=== PATIENT | male | born 1935 | race African-American/Black ===

== ENCOUNTER → 2016-07-24 | Day surgery (SDC) | payer MEDICARE, BC ==
[~2016-07-24] VITALS: Ht 175.3 cm; Wt 83.9 kg
[~2016-07-24] MED LIST: ACETAMINOPHEN 325MG TABLET PO PRN; ASPI325T2 PO; ATEN-42 PO; CLOP75TA2 PO; DILT180C3 PO; FENTANYL CITRATE/PF 50MCG/ML 2ML VIAL ONE; HEPARIN SODIUM 1,000 UNIT/1ML VIAL IV ONE; INDO75CA PO; IODIXANOL 320MG/ML 100 ML BOTTLE IV ONE; ISOS60TA PO; LIDOCAINE HCL 1% 20ML VIAL (Pyxis) INJ ONE; METH4TAB3 PO; MIDAZOLAM HCL 2 MG/2 ML VIAL ONE; NITR0.4T3 SL; PREG50CA PO; RANO500T3 PO; SIMV40TA5 PO
== END | disposition home or self-care (01) ==
LOC: CCL 10:32
PROVIDERS: ATTEND Specialist
DX: I25.110 Atherosclerotic heart disease of native coronary artery with unstable angina pectoris (principal); Z95.1 Presence of aortocoronary bypass graft; Z95.5 Presence of coronary angioplasty implant and graft; I11.9 Hypertensive heart disease without heart failure; E78.5 Hyperlipidemia, unspecified; Z87.891 Personal history of nicotine dependence
CPT/HCPCS: 93459; C1760; C1769; C1887; C1893; J1644; J2250; J3010; J3490; Q9967

== ENCOUNTER 2017-07-14 17:57 | Inpatient (IN) | payer MEDICARE, BC ==
[~2017-07-14] VITALS: Ht 175.3 cm; Wt 83.0 kg
[~2017-07-14 17:57] MED LIST changes: -ACETAMINOPHEN 325MG TABLET PO PRN; +ASPI-986 PO; -ASPI325T2 PO; +CLOP75TA16 PO; -CLOP75TA2 PO; -FENTANYL CITRATE/PF 50MCG/ML 2ML VIAL ONE; -HEPARIN SODIUM 1,000 UNIT/1ML VIAL IV ONE; -INDO75CA PO; +INDO75CA3 PO; -IODIXANOL 320MG/ML 100 ML BOTTLE IV ONE; -LIDOCAINE HCL 1% 20ML VIAL (Pyxis) INJ ONE; -MIDAZOLAM HCL 2 MG/2 ML VIAL ONE; -NITR0.4T3 SL; +NITR0.4T49 SL
[2017-07-14 19:10] LABS: HEMATOCRIT. 46.8 % (42.0-52.0); HEMOGLOBIN. 15.8 g/dL (14.0-18.0); MEAN CORPUSCULAR HEMOGLOBIN 32.9 pg (28.0-32.0); MEAN CORPUSCULAR VOLUME 97.7 fL (80.0-94.0); MEAN PLATELET VOLUME 9.6 fl (7.4-10.4); PLATELET 157 x1000/uL (130-400); RED BLOOD CELL COUNT 4.79 mill/uL (4.7-6.1); RED CELL DISTRIBUTION WIDTH 14.3 % (11.6-14.6)
[2017-07-14 19:12] LABS: CHLORIDE 102 mEq/L (98-107)
[2017-07-14 19:16] LABS: D-DIMER 0.58 mg/L FEU (<0.50); INR 1.1; PARTIAL THROMBOPLASTIN TIME 29.6 sec (23.4-31.0); PROTHROMBIN TIME 11.7 sec (9.4-11.6)
[2017-07-14 19:20] LABS: CREATINE KINASE 149 IU/L (39-308)
[2017-07-14 19:23] LABS: CREATINE KINASE MB FRACTION 1.7 ng/mL (0.5-3.6)
[2017-07-14 19:51] LABS: PLATELET ESTIMATE NORMAL
[2017-07-14] MEDS ORDERED: SODIUM BICARBONATE 8.4% 1 MEQ/ML 50ML SYR IV ONE (20:30)
[2017-07-14] MEDS ORDERED: FUROSEMIDE 40MG/4ML VIAL IVP ONE (20:30)
[2017-07-14] MEDS ORDERED: IPRATROPIUM BROMIDE (0.02%) 0.5MG/2.5ML NEB HHN STA (20:42)
[2017-07-14] MEDS ORDERED: METHYLPREDNISOLONE SOD SUCC 125 MG/2 ML VIAL IV STA (20:42)
[2017-07-14] MEDS ORDERED: ALBUTEROL (0.083%) 2.5MG/3ML NEB HHN STA (20:42)
[2017-07-14] MEDS ORDERED: MAGNESIUM 2 G PREMIX 50 ML IV ONE (20:45)
[2017-07-14 21:44] LABS: BG BASE EXCESS 1.6 mmol/L (-2.0-2.0); BG CARBOXYHEMOGLOBIN 0.6 % (0.5-1.5); BG DEOXYHEMOGLOBIN 2.6 % (0.0-5.0); BG FRACTION INSPIRED OXYGEN 28; BG HCO3 ACT 25.4 mmol/L (22.0-26.0); BG METHEMOGLOBIN 0.2 % (0.0-1.5); BG OXYGEN SATURATION 97.4 % (92.0-98.5); BG OXYHEMOGLOBIN 96.6 % (94.0-97.0); BG PCO2 37.4 mmHg (35.0-45.0); BG PH 7.449 (7.350-7.450); BG PO2 94.6 mmHg (75.0-100.0); BG SAMPLE SITE RIGHT RADIAL; BG TOTAL HEMOGLOBIN 16.2 g/dL (12.0-18.0); BG VENT MODE NASAL CANNULA
[2017-07-14] MEDS ORDERED: ASPIRIN 81MG TABLET PO ONE (23:15)
[2017-07-15] MEDS: IPRATROPIUM/ALBUTEROL 0.5-3(2.5)MG/3ML NEB HHN SCH (01:40)
[2017-07-15] MEDS ORDERED: CLOPIDOGREL 75MG TABLET PO SCH (09:00)
[2017-07-15] MEDS ORDERED: ENOXAPARIN 40MG/0.4ML SYR SUBCUT SCH ×2 (09:00→22:00)
[2017-07-15] MEDS ORDERED: NITROGLYCERIN 0.4MG TABLET SL SL PRN (09:00)
[2017-07-15] MEDS ORDERED: DILTIAZEM HCL 180MG CAPSULE CD 24HR PO SCH (09:00)
[2017-07-15] MEDS ORDERED: METHYLPREDNISOLONE SOD SUCC 40 MG/ML VIAL IV SCH (10:00)
[2017-07-15 14:33] LABS: CREATINE KINASE MB FRACTION 3.1 ng/mL (0.5-3.6)
[2017-07-15 20:00] VITALS: BP 142/81
[2017-07-15 21:00] VITALS: BP 142/81
[2017-07-15] MEDS: ATORVASTATIN CALCIUM 20MG TABLET PO SCH (21:30)
[2017-07-15] MEDS: METHYLPREDNISOLONE SOD SUCC 40 MG/ML VIAL IV SCH (21:31)
[2017-07-16] VITALS (12 sets, daily range): BP systolic 106–150; BP diastolic 49–77
[2017-07-16 00:23] LABS: CREATINE KINASE MB FRACTION 5.4 ng/mL (0.5-3.6)
[2017-07-16] MEDS: METHYLPREDNISOLONE SOD SUCC 40 MG/ML VIAL IV SCH ×2 (06:49→17:46)
[2017-07-16 07:03] LABS: HEMATOCRIT. 47.7 % (42.0-52.0); HEMOGLOBIN. 15.7 g/dL (14.0-18.0); MEAN CORPUSCULAR HEMOGLOBIN 32.3 pg (28.0-32.0); MEAN CORPUSCULAR VOLUME 98.5 fL (80.0-94.0); MEAN PLATELET VOLUME 9.8 fl (7.4-10.4); PLATELET 166 x1000/uL (130-400); RED BLOOD CELL COUNT 4.85 mill/uL (4.7-6.1); RED CELL DISTRIBUTION WIDTH 14.3 % (11.6-14.6)
[2017-07-16 07:44] LABS: CHLORIDE 102 mEq/L (98-107)
[2017-07-16 07:59] LABS: LDL CHOLESTEROL 95 mg/dL (5-100)
[2017-07-16 08:01] LABS: HDL CHOLESTEROL 60 mg/dL (40-59)
[2017-07-16] MEDS: DILTIAZEM HCL 180MG CAPSULE CD 24HR PO SCH (08:08)
[2017-07-16] MEDS: ISOSORBIDE MONONITRATE 60MG TABLET SR 24HR PO SCH (08:08)
[2017-07-16] MEDS: IPRATROPIUM/ALBUTEROL 0.5-3(2.5)MG/3ML NEB HHN SCH ×4 (09:21→21:28)
[2017-07-16] MEDS: AZITHROMYCIN 500 MG TABLET PO SCH (12:41)
[2017-07-16] MEDS ORDERED: NON FORMULARY PATIENT HOME MED EA OP SCH ×2 (21:00)
[2017-07-16] MEDS ORDERED: ENOXAPARIN 40MG/0.4ML SYR SUBCUT SCH (21:00)
[2017-07-16] MEDS: LATANOPROST 0.005% OPHTH DROPS 2.5ML EACHEYE SCH (21:02)
[2017-07-16] MEDS: ATORVASTATIN CALCIUM 20MG TABLET PO SCH (21:02)
[2017-07-16] MEDS: BRIMONIDINE 0.2% OPHTH DROPS 5ML EACHEYE SCH (21:02)
[2017-07-17] VITALS (12 sets, daily range): BP systolic 107–135; BP diastolic 52–70
[2017-07-17 04:58] LABS: PLATELET ESTIMATE NORMAL
[2017-07-17] MEDS: METHYLPREDNISOLONE SOD SUCC 40 MG/ML VIAL IV SCH ×2 (06:05→17:02)
[2017-07-17] MEDS: IPRATROPIUM/ALBUTEROL 0.5-3(2.5)MG/3ML NEB HHN SCH ×4 (08:38→21:50)
[2017-07-17 09:02] LABS: HEMATOCRIT. 44.3 % (42.0-52.0); HEMOGLOBIN. 14.5 g/dL (14.0-18.0); MEAN CORPUSCULAR HEMOGLOBIN 32.1 pg (28.0-32.0); MEAN CORPUSCULAR VOLUME 98.1 fL (80.0-94.0); MEAN PLATELET VOLUME 9.6 fl (7.4-10.4); PLATELET 174 x1000/uL (130-400); RED BLOOD CELL COUNT 4.52 mill/uL (4.7-6.1); RED CELL DISTRIBUTION WIDTH 14.4 % (11.6-14.6)
[2017-07-17 09:31] LABS: CHLORIDE 97 mEq/L (98-107)
[2017-07-17] MEDS: BRIMONIDINE 0.2% OPHTH DROPS 5ML EACHEYE SCH ×2 (09:46→17:01)
[2017-07-17] MEDS: ISOSORBIDE MONONITRATE 60MG TABLET SR 24HR PO SCH (09:46)
[2017-07-17] MEDS: AZITHROMYCIN 500 MG TABLET PO SCH (09:46)
[2017-07-17] MEDS: DILTIAZEM HCL 180MG CAPSULE CD 24HR PO SCH (09:47)
[2017-07-17] MEDS ORDERED: BENZONATATE 100MG CAPSULE PO PRN (14:15)
[2017-07-17] MEDS: LATANOPROST 0.005% OPHTH DROPS 2.5ML EACHEYE SCH (20:15)
[2017-07-17] MEDS: ATORVASTATIN CALCIUM 20MG TABLET PO SCH (20:15)
[2017-07-18] VITALS (12 sets, daily range): BP systolic 116–153; BP diastolic 56–83
[2017-07-18] MEDS: METHYLPREDNISOLONE SOD SUCC 40 MG/ML VIAL IV SCH ×2 (05:51→17:18)
[2017-07-18] MEDS: BRIMONIDINE 0.2% OPHTH DROPS 5ML EACHEYE SCH ×2 (08:02→17:17)
[2017-07-18] MEDS: ISOSORBIDE MONONITRATE 60MG TABLET SR 24HR PO SCH (08:02)
[2017-07-18] MEDS: DILTIAZEM HCL 180MG CAPSULE CD 24HR PO SCH (08:03)
[2017-07-18] MEDS: AZITHROMYCIN 500 MG TABLET PO SCH (08:03)
[2017-07-18] MEDS: IPRATROPIUM/ALBUTEROL 0.5-3(2.5)MG/3ML NEB HHN SCH ×4 (09:10→21:11)
[2017-07-18] MEDS ORDERED: GUAIFENESIN/CODEINE 200-20MG/10ML UDC PO PRN (13:00)
[2017-07-18] MEDS: FLUTICASONE/VILANTEROL 200-25 BLST.W.DEV ORI SCH (13:38)
[2017-07-18 15:02] LABS: PLATELET ESTIMATE NORMAL
[2017-07-18] MEDS: ATORVASTATIN CALCIUM 20MG TABLET PO SCH (21:10)
[2017-07-18] MEDS: LATANOPROST 0.005% OPHTH DROPS 2.5ML EACHEYE SCH (21:11)
[2017-07-19] VITALS (13 sets, daily range): BP systolic 128–145; BP diastolic 64–79
[2017-07-19] MEDS: METHYLPREDNISOLONE SOD SUCC 40 MG/ML VIAL IV SCH (06:09)
[2017-07-19 06:32] LABS: HEMATOCRIT. 43.5 % (42.0-52.0); HEMOGLOBIN. 14.3 g/dL (14.0-18.0); MEAN CORPUSCULAR VOLUME 97.5 fL (80.0-94.0); MEAN PLATELET VOLUME 9.5 fl (7.4-10.4); PLATELET 176 x1000/uL (130-400); RED BLOOD CELL COUNT 4.46 mill/uL (4.7-6.1); RED CELL DISTRIBUTION WIDTH 14.2 % (11.6-14.6)
[2017-07-19 07:10] LABS: CHLORIDE 100 mEq/L (98-107)
[2017-07-19] MEDS: FLUTICASONE/VILANTEROL 200-25 BLST.W.DEV ORI SCH (08:29)
[2017-07-19] MEDS: BRIMONIDINE 0.2% OPHTH DROPS 5ML EACHEYE SCH ×2 (08:29→17:13)
[2017-07-19] MEDS: DILTIAZEM HCL 180MG CAPSULE CD 24HR PO SCH (08:30)
[2017-07-19] MEDS: AZITHROMYCIN 500 MG TABLET PO SCH (08:30)
[2017-07-19] MEDS: ISOSORBIDE MONONITRATE 60MG TABLET SR 24HR PO SCH (08:31)
[2017-07-19] MEDS: IPRATROPIUM/ALBUTEROL 0.5-3(2.5)MG/3ML NEB HHN SCH ×4 (09:05→20:32)
[2017-07-19] MEDS: PREDNISONE 10MG TABLET PO SCH (17:13)
[2017-07-19] MEDS: LATANOPROST 0.005% OPHTH DROPS 2.5ML EACHEYE SCH (20:41)
[2017-07-19] MEDS: ATORVASTATIN CALCIUM 20MG TABLET PO SCH (20:41)
[2017-07-19 23:42] LABS: PLATELET ESTIMATE NORMAL
[2017-07-20] VITALS (8 sets, daily range): BP systolic 115–144; BP diastolic 69–78
[2017-07-20] MEDS: AZITHROMYCIN 500 MG TABLET PO SCH (08:19)
[2017-07-20] MEDS: PREDNISONE 10MG TABLET PO SCH (08:19)
[2017-07-20] MEDS: FLUTICASONE/VILANTEROL 200-25 BLST.W.DEV ORI SCH (08:19)
[2017-07-20] MEDS: DILTIAZEM HCL 180MG CAPSULE CD 24HR PO SCH (08:20)
[2017-07-20] MEDS: ISOSORBIDE MONONITRATE 60MG TABLET SR 24HR PO SCH (08:20)
[2017-07-20] MEDS: BRIMONIDINE 0.2% OPHTH DROPS 5ML EACHEYE SCH (08:27)
[2017-07-20] MEDS: IPRATROPIUM/ALBUTEROL 0.5-3(2.5)MG/3ML NEB HHN SCH ×2 (09:25→11:54)
[2017-07-20] MEDS ORDERED: PREDNISONE 20MG TABLET PO NR (12:00)
== END 2017-07-20 13:35 | disposition home or self-care (01) | DRG 291 ==
LOC: ER 18:58 → EDBEDREQ 20:52 → EDBEDREQSVC 20:52 → EDBEDREQTM 20:52 → EDBEDREQSVC 07-15 08:00 → 3WST 07-15 20:00
PROVIDERS: ADMIT Internal Medicine Critical Care Medicine; ATTEND Internal Medicine Critical Care Medicine
DX: I13.0 Hypertensive heart and chronic kidney disease with heart failure and stage 1 through stage 4 chronic kidney disease, or unspecified chronic kidney disease (principal); J96.91 Respiratory failure, unspecified with hypoxia; E87.2 Acidosis; J44.1 Chronic obstructive pulmonary disease with (acute) exacerbation; J98.11 Atelectasis; R04.2 Hemoptysis; I50.9 Heart failure, unspecified; I25.10 Atherosclerotic heart disease of native coronary artery without angina pectoris; I25.5 Ischemic cardiomyopathy; E78.5 Hyperlipidemia, unspecified; N18.9 Chronic kidney disease, unspecified; H40.9 Unspecified glaucoma; E78.00 Pure hypercholesterolemia, unspecified; G89.29 Other chronic pain; M54.5 Low back pain; Z95.1 Presence of aortocoronary bypass graft; Z79.899 Other long term (current) drug therapy; Z95.5 Presence of coronary angioplasty implant and graft; Z90.49 Acquired absence of other specified parts of digestive tract; Z79.02 Long term (current) use of antithrombotics/antiplatelets; Z88.2 Allergy status to sulfonamides; Z88.8 Allergy status to other drugs, medicaments and biological substances; Z80.9 Family history of malignant neoplasm, unspecified; Z82.49 Family history of ischemic heart disease and other diseases of the circulatory system; I25.2 Old myocardial infarction; Z87.891 Personal history of nicotine dependence
CPT/HCPCS: 36415; 36600; 71045; 71250; 78582; 80048; 80053; 80061; 82375; 82550; 82553; 82805; 83605; 83690; 83880; 84484; 85025; 85379; 85610; 85730; 87040; 88108; 88312; 93005; 93306; 93970; 94640; 94644; 96361; 96374; 96375; 99291; A9558; J1650; J1940; J2920; J2930; J3475; J3490; J7512; J7611; J7620

== ENCOUNTER 2022-03-05 16:09 | Inpatient (IN) | payer MEDICARE, BC ==
[~2022-03-05] VITALS: Ht 175.3 cm; Wt 81.8 kg
[~2022-03-05 16:09] MED LIST changes: -ASPI-986 PO; +BRIM.2 EACHEYE; +CLOP-31 PO; -CLOP75TA16 PO; -DILT180C3 PO; +DILT180C87 PO; -INDO75CA3 PO; +LATA2.5D14 EACHEYE; -METH4TAB3 PO; -PREG50CA PO; +SIMV-46 PO; -SIMV40TA5 PO
[2022-03-05 22:42] LABS: HEMATOCRIT. 43.9 % (42.0-52.0); HEMOGLOBIN. 14.6 g/dL (14.0-18.0); MEAN CORPUSCULAR HEMOGLOBIN 34.2 pg (28.0-32.0); MEAN CORPUSCULAR VOLUME 102.6 fL (80.0-94.0); MEAN PLATELET VOLUME 10.5 fl (7.4-10.4); PLATELET 159 x1000/uL (130-400); RED BLOOD CELL COUNT 4.28 mill/uL (4.7-6.1); RED CELL DISTRIBUTION WIDTH 14.5 % (11.6-14.6)
[2022-03-05 22:53] LABS: CHLORIDE 98 mEq/L (98-107)
[2022-03-05 22:57] LABS: PLATELET ESTIMATE NORMAL
[2022-03-06] MEDS ORDERED: IPRATROPIUM/ALBUTEROL 0.5-3(2.5)MG/3ML NEB HHN ONE ×2 (02:00→02:30)
[2022-03-06] MEDS ORDERED: DEXAMETHASONE 4MG TABLET PO ONE (02:00)
[2022-03-06] MEDS ORDERED: DEXAMETHASONE 2MG TABLET PO NR (03:00)
[2022-03-06 03:44] LABS: CLARITY URINE TURBID (CLEAR); COLOR URINE YELLOW (YELLOW); KETONES URINE TRACE (NEGATIVE); LEUKOCYTE ESTERASE URINE 3+ (NEGATIVE); NITRITE URINE POSITIVE (NEGATIVE); OCCULT BLOOD URINE 1+ (NEGATIVE); PH URINE 5.5 (4.5-8.0); PROTEIN URINE 2+ (NEGATIVE); SPECIFIC GRAVITY URINE 1.012 (1.005-1.030)
[2022-03-06] MEDS ORDERED: ALBU6.7H3 INH (11:13)
[2022-03-06] MEDS ORDERED: ASPI-1497 MT (11:13)
[2022-03-06 11:14] VITALS: BP 127/64
[2022-03-06] MEDS ORDERED: ACETAMINOPHEN 325MG TABLET PO PRN (11:45)
[2022-03-06] MEDS ORDERED: ONDANSETRON HCL 4MG/2ML INJ IV PRN (11:45)
[2022-03-06] MEDS ORDERED: CLONIDINE 0.1MG TABLET PO PRN (11:45)
[2022-03-06] MEDS: METHYLPREDNISOLONE SOD SUCC 40 MG/ML VIAL IV SCH ×2 (11:57→17:47)
[2022-03-06 12:00] VITALS: BP 159/71
[2022-03-06 12:27] VITALS: BP 127/64
[2022-03-06] MEDS: GUAIFENESIN 200MG/10ML SUGAR FREE UDC PO PRN (15:54)
[2022-03-06] MEDS: BRIMONIDINE 0.2% OPHTH DROPS 5ML BOTHEYE SCH ×2 (15:55→22:03)
[2022-03-06 16:00] VITALS: BP 142/72
[2022-03-06] MEDS: MULTIVITAMINS,THER W-MINERALS TABLET PO SCH (17:47)
[2022-03-06] MEDS: THIAMINE HCL 100MG TABLET PO SCH (17:47)
[2022-03-06 19:25] LABS: PHOSPHORUS 3.5 mg/dL (2.5-4.9)
[2022-03-06] MEDS: CEFTRIAXONE 1,000 MG in DEXTROSE 5% WATER 50 ML IV SCH (22:01)
[2022-03-07] VITALS: BP 132/56
[2022-03-07 04:00] VITALS: BP 132/63
[2022-03-07] MEDS: BRIMONIDINE 0.2% OPHTH DROPS 5ML BOTHEYE SCH ×3 (05:44→23:12)
[2022-03-07] MEDS: METHYLPREDNISOLONE SOD SUCC 40 MG/ML VIAL IV SCH ×3 (05:44→20:31)
[2022-03-07 08:00] VITALS: BP 129/52
[2022-03-07 08:17] LABS: HEMATOCRIT. 40.8 % (42.0-52.0); HEMOGLOBIN. 13.4 g/dL (14.0-18.0); MEAN CORPUSCULAR HEMOGLOBIN 33.7 pg (28.0-32.0); MEAN CORPUSCULAR VOLUME 102.8 fL (80.0-94.0); MEAN PLATELET VOLUME 10.1 fl (7.4-10.4); PLATELET 150 x1000/uL (130-400); RED BLOOD CELL COUNT 3.96 mill/uL (4.7-6.1); RED CELL DISTRIBUTION WIDTH 14.3 % (11.6-14.6)
[2022-03-07 09:00] LABS: CHLORIDE 101 mEq/L (98-107)
[2022-03-07] MEDS: THIAMINE HCL 100MG TABLET PO SCH (09:42)
[2022-03-07] MEDS: MULTIVITAMINS,THER W-MINERALS TABLET PO SCH (09:42)
[2022-03-07 11:53] LABS: BG BASE EXCESS 4.9 mmol/L (-2.0-2.0); BG CARBOXYHEMOGLOBIN 0.9 % (0.5-1.5); BG DEOXYHEMOGLOBIN 9.2 % (0.0-5.0); BG FRACTION INSPIRED OXYGEN 21; BG HCO3 ACT 31.1 mmol/L (22.0-26.0); BG METHEMOGLOBIN 0.3 % (0.0-1.5); BG OXYGEN SATURATION 90.7 % (92.0-98.5); BG OXYHEMOGLOBIN 89.6 % (94.0-97.0); BG PCO2 52.3 mmHg (35.0-45.0); BG PH 7.392 (7.350-7.450); BG PO2 59.6 mmHg (75.0-100.0); BG SAMPLE SITE RIGHT RADIAL; BG VENT MODE ROOM AIR
[2022-03-07 12:00] VITALS: BP 145/75
[2022-03-07 16:00] VITALS: BP 154/76
[2022-03-07] MEDS: CEFTRIAXONE 1,000 MG in DEXTROSE 5% WATER 50 ML IV SCH (18:08)
[2022-03-07 20:00] VITALS: BP 123/70
[2022-03-08] VITALS: BP 130/80
[2022-03-08] MEDS: ALBUTEROL 6.7GM HFA INHALER ORI SCH ×5 (00:30→22:02)
[2022-03-08] MEDS: GUAIFENESIN 200MG/10ML SUGAR FREE UDC PO PRN (00:31)
[2022-03-08] MEDS: ZOLPIDEM TARTRATE 5MG TABLET PO PRN ×2 (00:38→22:16)
[2022-03-08 04:00] VITALS: BP 130/67
[2022-03-08] MEDS: METHYLPREDNISOLONE SOD SUCC 40 MG/ML VIAL IV SCH ×3 (04:13→22:02)
[2022-03-08 04:22] LABS: PLATELET ESTIMATE NORMAL
[2022-03-08] MEDS: BRIMONIDINE 0.2% OPHTH DROPS 5ML BOTHEYE SCH ×3 (07:08→22:02)
[2022-03-08 07:30] LABS: HEMOGLOBIN. 13.3 g/dL (14.0-18.0); MEAN CORPUSCULAR HEMOGLOBIN 33.7 pg (28.0-32.0); MEAN PLATELET VOLUME 10.5 fl (7.4-10.4); PLATELET 168 x1000/uL (130-400); RED BLOOD CELL COUNT 3.94 mill/uL (4.7-6.1); RED CELL DISTRIBUTION WIDTH 14.6 % (11.6-14.6)
[2022-03-08 07:47] LABS: CHLORIDE 101 mEq/L (98-107)
[2022-03-08 08:08] VITALS: BP 143/69
[2022-03-08] MEDS: THIAMINE HCL 100MG TABLET PO SCH (09:12)
[2022-03-08] MEDS: MULTIVITAMINS,THER W-MINERALS TABLET PO SCH (09:12)
[2022-03-08 12:00] VITALS: BP 150/68
[2022-03-08] MEDS ORDERED: AZITHROMYCIN 500 MG TABLET PO NR (15:30)
[2022-03-08 16:00] VITALS: BP 145/71
[2022-03-08 20:00] VITALS: BP 144/68
[2022-03-08] MEDS: CEFTRIAXONE 1,000 MG in DEXTROSE 5% WATER 50 ML IV SCH (22:02)
[2022-03-08 22:17] LABS: PLATELET ESTIMATE NORMAL
[2022-03-09] VITALS (7 sets, daily range): BP systolic 134–180; BP diastolic 56–84
[2022-03-09] MEDS: METHYLPREDNISOLONE SOD SUCC 40 MG/ML VIAL IV SCH ×3 (03:45→21:41)
[2022-03-09] MEDS: BRIMONIDINE 0.2% OPHTH DROPS 5ML BOTHEYE SCH ×3 (06:44→21:43)
[2022-03-09] MEDS: ALBUTEROL 6.7GM HFA INHALER ORI SCH ×4 (06:45→21:43)
[2022-03-09 07:29] LABS: HEMOGLOBIN. 13.5 g/dL (14.0-18.0); MEAN CORPUSCULAR HEMOGLOBIN 33.8 pg (28.0-32.0); MEAN CORPUSCULAR VOLUME 102.7 fL (80.0-94.0); MEAN PLATELET VOLUME 10.3 fl (7.4-10.4); PLATELET 163 x1000/uL (130-400); RED BLOOD CELL COUNT 3.99 mill/uL (4.7-6.1); RED CELL DISTRIBUTION WIDTH 14.4 % (11.6-14.6)
[2022-03-09 09:35] LABS: CHLORIDE 99 mEq/L (98-107)
[2022-03-09] MEDS: MULTIVITAMINS,THER W-MINERALS TABLET PO SCH (09:52)
[2022-03-09] MEDS: THIAMINE HCL 100MG TABLET PO SCH (09:52)
[2022-03-09] MEDS: AZITHROMYCIN 250 MG TABLET PO SCH (09:52)
[2022-03-09] MEDS ORDERED: SODIUM POLYSTYRENE SULFONATE 15 G/60 ML BOT PO NR (13:15)
[2022-03-09 14:24] LABS: PLATELET ESTIMATE NORMAL
[2022-03-09] MEDS: GUAIFENESIN 200MG/10ML SUGAR FREE UDC PO PRN (16:30)
[2022-03-09] MEDS ORDERED: LORAZEPAM 2MG/ML CPJ IV PRN (18:00)
[2022-03-09] MEDS: CEFTRIAXONE 1,000 MG in DEXTROSE 5% WATER 50 ML IV SCH (18:02)
[2022-03-09] MEDS: ZOLPIDEM TARTRATE 5MG TABLET PO PRN (21:41)
[2022-03-10] VITALS: BP 97/70
[2022-03-10] MEDS ORDERED: METOPROLOL TARTRATE 5MG/5ML VIAL IV NR (01:45)
[2022-03-10 04:00] VITALS: BP 134/76
[2022-03-10] MEDS ORDERED: DILTIAZEM HCL 180MG CAPSULE CD 24HR PO SCH (04:00)
[2022-03-10] MEDS: ALBUTEROL 6.7GM HFA INHALER ORI SCH ×4 (05:33→23:14)
[2022-03-10] MEDS: METHYLPREDNISOLONE SOD SUCC 40 MG/ML VIAL IV SCH ×3 (05:33→23:08)
[2022-03-10] MEDS: BRIMONIDINE 0.2% OPHTH DROPS 5ML BOTHEYE SCH ×2 (05:33→14:15)
[2022-03-10] MEDS ORDERED: DILT180C66 PO (06:13)
[2022-03-10] MEDS ORDERED: NITROGLYCERIN 0.4MG TABLET SL SL PRN ×2 (07:15→07:30)
[2022-03-10] MEDS: ATENOLOL 25MG TABLET PO SCH ×2 (07:15→09:00)
[2022-03-10 08:00] VITALS: BP 143/79
[2022-03-10] MEDS: BRIMONIDINE 0.2% OPHTH DROPS 5ML EACHEYE SCH ×2 (09:49→17:00)
[2022-03-10] MEDS: DILTIAZEM HCL 180MG CAPSULE CD 24HR PO SCH (09:49)
[2022-03-10] MEDS: AZITHROMYCIN 250 MG TABLET PO SCH (09:50)
[2022-03-10] MEDS: THIAMINE HCL 100MG TABLET PO SCH (09:50)
[2022-03-10] MEDS: RANOLAZINE 500 MG TAB.SR.12H PO SCH ×2 (09:50→17:00)
[2022-03-10] MEDS: MULTIVITAMINS,THER W-MINERALS TABLET PO SCH (09:50)
[2022-03-10] MEDS: GUAIFENESIN 200MG/10ML SUGAR FREE UDC PO PRN (09:50)
[2022-03-10] MEDS: ISOSORBIDE MONONITRATE 30MG TABLET SR 24HR PO SCH (09:50)
[2022-03-10] MEDS: CLOPIDOGREL 75MG TABLET PO SCH (09:50)
[2022-03-10 12:00] VITALS: BP 129/69
[2022-03-10] MEDS: FUROSEMIDE 40MG TABLET PO SCH (14:15)
[2022-03-10 16:00] VITALS: BP 154/84
[2022-03-10] MEDS: CEFTRIAXONE 1,000 MG in DEXTROSE 5% WATER 50 ML IV SCH (18:08)
[2022-03-10 20:00] VITALS: BP 135/81
[2022-03-10] MEDS ORDERED: ATORVASTATIN CALCIUM 20MG TABLET PO SCH (21:00)
[2022-03-10] MEDS ORDERED: LATANOPROST 0.005% OPHTH DROPS 2.5ML EACHEYE SCH (21:00)
[2022-03-10] MEDS: ZOLPIDEM TARTRATE 5MG TABLET PO PRN (21:21)
[2022-03-11] VITALS (7 sets, daily range): BP systolic 108–165; BP diastolic 53–88
[2022-03-11] MEDS: ALBUTEROL 6.7GM HFA INHALER ORI SCH ×2 (05:28→12:26)
[2022-03-11 07:39] LABS: HEMATOCRIT. 38.7 % (42.0-52.0); HEMOGLOBIN. 12.7 g/dL (14.0-18.0); MEAN CORPUSCULAR HEMOGLOBIN 33.6 pg (28.0-32.0); MEAN CORPUSCULAR VOLUME 102.2 fL (80.0-94.0); MEAN PLATELET VOLUME 10.7 fl (7.4-10.4); PLATELET 164 x1000/uL (130-400); RED BLOOD CELL COUNT 3.79 mill/uL (4.7-6.1); RED CELL DISTRIBUTION WIDTH 14.4 % (11.6-14.6)
[2022-03-11] MEDS: ISOSORBIDE MONONITRATE 30MG TABLET SR 24HR PO SCH (09:24)
[2022-03-11] MEDS: RANOLAZINE 500 MG TAB.SR.12H PO SCH (09:24)
[2022-03-11] MEDS: BRIMONIDINE 0.2% OPHTH DROPS 5ML EACHEYE SCH (09:24)
[2022-03-11] MEDS: THIAMINE HCL 100MG TABLET PO SCH (09:25)
[2022-03-11] MEDS: AZITHROMYCIN 250 MG TABLET PO SCH (09:25)
[2022-03-11] MEDS: FUROSEMIDE 40MG TABLET PO SCH (09:25)
[2022-03-11] MEDS: CLOPIDOGREL 75MG TABLET PO SCH (09:25)
[2022-03-11] MEDS: DILTIAZEM HCL 180MG CAPSULE CD 24HR PO SCH (09:25)
[2022-03-11] MEDS: MULTIVITAMINS,THER W-MINERALS TABLET PO SCH (09:25)
[2022-03-11] MEDS: ATENOLOL 25MG TABLET PO SCH (09:25)
[2022-03-11] MEDS: METHYLPREDNISOLONE SOD SUCC 40 MG/ML VIAL IV SCH (12:26)
[2022-03-11] MEDS ORDERED: FURO-151 PO (13:17)
[2022-03-11 18:42] LABS: PLATELET ESTIMATE NORMAL
[2022-03-12 09:45] LABS: CHLORIDE 99 mEq/L (98-107)
== END 2022-03-11 18:02 | disposition home or self-care (01) | DRG 871 ==
LOC: ER 16:09 → 7EST 03-06 02:50 → EDBEDREQ 03-06 02:58
PROVIDERS: ADMIT Internal Medicine; ATTEND Internal Medicine
DX: A41.89 Other specified sepsis (principal); J12.82 Pneumonia due to coronavirus disease 2019; U07.1 COVID-19; J96.01 Acute respiratory failure with hypoxia; J96.02 Acute respiratory failure with hypercapnia; J44.0 Chronic obstructive pulmonary disease with (acute) lower respiratory infection; J44.1 Chronic obstructive pulmonary disease with (acute) exacerbation; N39.0 Urinary tract infection, site not specified; I50.32 Chronic diastolic (congestive) heart failure; N17.9 Acute kidney failure, unspecified; E78.00 Pure hypercholesterolemia, unspecified; Z20.822 Contact with and (suspected) exposure to COVID-19; F10.20 Alcohol dependence, uncomplicated; I25.10 Atherosclerotic heart disease of native coronary artery without angina pectoris; R73.9 Hyperglycemia, unspecified; I11.0 Hypertensive heart disease with heart failure; M19.90 Unspecified osteoarthritis, unspecified site; E87.5 Hyperkalemia; Z79.02 Long term (current) use of antithrombotics/antiplatelets; I25.2 Old myocardial infarction; Z87.891 Personal history of nicotine dependence; Z95.1 Presence of aortocoronary bypass graft; Z79.899 Other long term (current) drug therapy; Z95.5 Presence of coronary angioplasty implant and graft; Z88.8 Allergy status to other drugs, medicaments and biological substances; Z88.2 Allergy status to sulfonamides
CPT/HCPCS: 36415; 36600; 71045; 80048; 80053; 81003; 82085; 82375; 82728; 82805; 83615; 83735; 83880; 84100; 84153; 84484; 85025; 85379; 87077; 87186; 87426; 93005; 93970; 97162; 97166; 99285; C9803; J0696; J2060; J2920; J3490; J7060; J8540; G0103

== ENCOUNTER 2022-03-17 15:53 | Inpatient (IN) | payer MEDICARE, BC ==
[~2022-03-17] VITALS: Ht 175.3 cm; Wt 81.6 kg
[~2022-03-17 15:53] MED LIST changes: +ALBU6.7H3 INH; +ASPI-1497 MT; +DILT180C66 PO; -DILT180C87 PO; +FURO-151 PO
[2022-03-17] MEDS ORDERED: DEXAMETHASONE 4MG/ML 1ML VIAL IV STA (17:35)
[2022-03-17 17:41] LABS: HEMATOCRIT. 51.2 % (42.0-52.0); HEMOGLOBIN. 16.5 g/dL (14.0-18.0); MEAN CORPUSCULAR HEMOGLOBIN 33.2 pg (28.0-32.0); MEAN CORPUSCULAR VOLUME 102.8 fL (80.0-94.0); MEAN PLATELET VOLUME 11.9 fl (7.4-10.4); PLATELET 168 x1000/uL (130-400); RED BLOOD CELL COUNT 4.98 mill/uL (4.7-6.1); RED CELL DISTRIBUTION WIDTH 14.5 % (11.6-14.6)
[2022-03-17 17:56] LABS: CHLORIDE 90 mEq/L (98-107)
[2022-03-17 18:26] LABS: CLARITY URINE CLEAR (CLEAR); COLOR URINE YELLOW (YELLOW); KETONES URINE NEGATIVE (NEGATIVE); LEUKOCYTE ESTERASE URINE NEGATIVE (NEGATIVE); NITRITE URINE NEGATIVE (NEGATIVE); OCCULT BLOOD URINE NEGATIVE (NEGATIVE); PROTEIN URINE TRACE (NEGATIVE); SPECIFIC GRAVITY URINE 1.025 (1.005-1.030); UROBILINOGEN URINE 0.2 E.U./dL (0.2-1.0)
[2022-03-17] MEDS ORDERED: SODIUM CHLORIDE 0.9% 1,000 ML IV ONE (18:30)
[2022-03-17 18:33] LABS: PLATELET ESTIMATE NORMAL
[2022-03-17] MEDS ORDERED: INSULIN REGULAR (HUMULIN R) 300UNITS/3ML VIAL SUBCUT ONE (19:30)
[2022-03-17 21:31] LABS: D-DIMER 0.91 mg/L FEU (<0.50); INR 1.1; PROTHROMBIN TIME 11.9 sec (9.6-11.0)
[2022-03-17] MEDS ORDERED: MAGNESIUM/ALUMINUM HYDROXIDE/SIMETHICONE 30ML UDC PO PRN (22:45)
[2022-03-17] MEDS ORDERED: ONDANSETRON HCL 4MG/2ML INJ IV PRN (22:45)
[2022-03-17] MEDS ORDERED: IPRATROPIUM/ALBUTEROL 0.5-3(2.5)MG/3ML NEB HHN PRN (22:45)
[2022-03-17] MEDS ORDERED: GUAIFENESIN 200MG/10ML SUGAR FREE UDC PO PRN (22:45)
[2022-03-17] MEDS ORDERED: DOCUSATE SODIUM 100MG CAPSULE PO PRN (22:45)
[2022-03-17] MEDS ORDERED: ACETAMINOPHEN 325MG TABLET PO PRN ×2 (22:45)
[2022-03-17] MEDS ORDERED: HYDROCODONE/ACETAMINOPHEN 5/325MG TABLET PO PRN (22:45)
[2022-03-17] MEDS ORDERED: CLONIDINE 0.1MG TABLET PO PRN (22:45)
[2022-03-17] MEDS ORDERED: NALOXONE HCL 0.4MG/ML VIAL IV PRN (23:00)
[2022-03-18] MEDS ORDERED: DEXTROSE 50% WATER 50ML SYRINGE IV PRN ×2 (02:45→13:00)
[2022-03-18 05:00] VITALS: BP 133/63
[2022-03-18 06:00] VITALS: BP 133/63
[2022-03-18] MEDS: INSULIN LISPRO 100 UNITS/ML SUBCUT SCH ×4 (06:12→21:29)
[2022-03-18] MEDS: BLOOD SUGAR DIAGNOSTIC STRIP TEST SCH ×4 (06:12→21:29)
[2022-03-18] MEDS ORDERED: HYDROCODONE/ACETAMINOPHEN 5/325MG TABLET PO PRN (07:45)
[2022-03-18 08:00] VITALS: BP 130/69
[2022-03-18] MEDS ORDERED: BUDESONIDE 0.25MG/2ML NEB HHN PRN (09:00)
[2022-03-18] MEDS ORDERED: ASCORBIC ACID 500 MG TABLET PO SCH (09:00)
[2022-03-18] MEDS: ZINC SULFATE 220 MG ( 50 ) CAPSULE PO SCH (09:03)
[2022-03-18] MEDS: ENOXAPARIN 30MG/0.3ML SYR SUBCUT SCH (09:03)
[2022-03-18 09:12] LABS: BG BASE EXCESS 7.2 mmol/L (-2.0-2.0); BG CARBOXYHEMOGLOBIN 1.2 % (0.5-1.5); BG DEOXYHEMOGLOBIN 5.6 % (0.0-5.0); BG FRACTION INSPIRED OXYGEN 21; BG HCO3 ACT 31.2 mmol/L (22.0-26.0); BG METHEMOGLOBIN 0.1 % (0.0-1.5); BG OXYGEN SATURATION 94.3 % (92.0-98.5); BG OXYHEMOGLOBIN 93.1 % (94.0-97.0); BG PCO2 41.7 mmHg (35.0-45.0); BG PH 7.492 (7.350-7.450); BG PO2 68.8 mmHg (75.0-100.0); BG SAMPLE SITE RIGHT BRACHIAL; BG VENT MODE ROOM AIR
[2022-03-18 12:00] VITALS: BP 110/70
[2022-03-18] MEDS ORDERED: INSULIN LISPRO 100 UNITS/ML SUBCUT SCH (13:00)
[2022-03-18] MEDS: DILTIAZEM HCL 60MG TABLET PO SCH ×2 (13:40→21:29)
[2022-03-18] MEDS: NITROGLYCERIN OINT 1GM/INCH UDPKT TD SCH ×2 (13:41→21:20)
[2022-03-18 16:00] VITALS: BP 122/62
[2022-03-18] MEDS: ASCORBIC ACID 500 MG TABLET PO SCH (17:07)
[2022-03-18 20:00] VITALS: BP 107/68
[2022-03-19] VITALS: BP 118/63
[2022-03-19 04:00] VITALS: BP 109/61
[2022-03-19 05:06] LABS: BASOPHILS % 0.1 % (0.0-2.0); EOSINOPHILS % 0.3 % (0.0-5.0); HEMATOCRIT. 47.4 % (42.0-52.0); HEMOGLOBIN. 15.6 g/dL (14.0-18.0); LYMPHOCYTES % 8.7 % (20.0-50.0); MEAN CORPUSCULAR HEMOGLOBIN 33.5 pg (28.0-32.0); MEAN CORPUSCULAR VOLUME 101.6 fL (80.0-94.0); MEAN PLATELET VOLUME 12.3 fl (7.4-10.4); MONOCYTES % 11.8 % (2.0-8.0); NEUTROPHILS % 79.1 % (40.0-76.0); PLATELET 146 x1000/uL (130-400); RED BLOOD CELL COUNT 4.66 mill/uL (4.7-6.1); RED CELL DISTRIBUTION WIDTH 14.5 % (11.6-14.6)
[2022-03-19] MEDS: DILTIAZEM HCL 60MG TABLET PO SCH ×3 (05:11→21:49)
[2022-03-19] MEDS: NITROGLYCERIN OINT 1GM/INCH UDPKT TD SCH (05:11)
[2022-03-19 05:12] LABS: CHLORIDE 103 mEq/L (98-107)
[2022-03-19 05:25] LABS: HDL CHOLESTEROL 47 mg/dL (40-59); LDL CHOLESTEROL 105 mg/dL (5-100); PHOSPHORUS 2.6 mg/dL (2.5-4.9); T4 FREE 1.23 ng/dL (0.76-1.46)
[2022-03-19] MEDS: BLOOD SUGAR DIAGNOSTIC STRIP TEST SCH ×4 (06:18→21:49)
[2022-03-19] MEDS: INSULIN LISPRO 100 UNITS/ML SUBCUT SCH ×4 (06:18→21:49)
[2022-03-19 08:00] VITALS: BP 92/65
[2022-03-19] MEDS: CLOPIDOGREL 75MG TABLET PO SCH (09:40)
[2022-03-19] MEDS: ZINC SULFATE 220 MG ( 50 ) CAPSULE PO SCH (09:40)
[2022-03-19] MEDS: ASCORBIC ACID 500 MG TABLET PO SCH ×2 (09:40→17:11)
[2022-03-19] MEDS: ASPIRIN 81MG EC TABLET PO SCH (09:41)
[2022-03-19] MEDS: ENOXAPARIN 30MG/0.3ML SYR SUBCUT SCH (09:41)
[2022-03-19 12:00] VITALS: BP 100/61
[2022-03-19] MEDS: SODIUM CHLORIDE 0.45% 1,000 ML IV SCH (15:00)
[2022-03-19 16:00] VITALS: BP 97/58
[2022-03-19 20:00] VITALS: BP 100/49
[2022-03-20] VITALS: BP 98/55
[2022-03-20 04:00] VITALS: BP 111/64
[2022-03-20] MEDS: DILTIAZEM HCL 60MG TABLET PO SCH ×3 (05:45→21:20)
[2022-03-20] MEDS: SODIUM CHLORIDE 0.45% 1,000 ML IV SCH ×2 (05:58→17:44)
[2022-03-20] MEDS: BLOOD SUGAR DIAGNOSTIC STRIP TEST SCH ×4 (06:52→21:14)
[2022-03-20] MEDS: INSULIN LISPRO 100 UNITS/ML SUBCUT SCH ×4 (06:53→21:16)
[2022-03-20 08:00] VITALS: BP 114/68
[2022-03-20] MEDS: ASPIRIN 81MG EC TABLET PO SCH (09:32)
[2022-03-20] MEDS: ENOXAPARIN 30MG/0.3ML SYR SUBCUT SCH (09:32)
[2022-03-20] MEDS: ASCORBIC ACID 500 MG TABLET PO SCH ×2 (09:32→21:14)
[2022-03-20] MEDS: ZINC SULFATE 220 MG ( 50 ) CAPSULE PO SCH (09:32)
[2022-03-20] MEDS: CLOPIDOGREL 75MG TABLET PO SCH (09:32)
[2022-03-20 12:00] VITALS: BP 121/61
[2022-03-20] MEDS: METOPROLOL TARTRATE 25MG TABLET PO SCH ×2 (14:40→21:14)
[2022-03-20 16:00] VITALS: BP 124/72
[2022-03-20 17:42] LABS: BASOPHILS % 0.3 % (0.0-2.0); EOSINOPHILS % 0.2 % (0.0-5.0); HEMATOCRIT. 43.6 % (42.0-52.0); HEMOGLOBIN. 14.5 g/dL (14.0-18.0); LYMPHOCYTES % 7.6 % (20.0-50.0); MEAN CORPUSCULAR HEMOGLOBIN 33.9 pg (28.0-32.0); MEAN CORPUSCULAR VOLUME 102.1 fL (80.0-94.0); MEAN PLATELET VOLUME 11.9 fl (7.4-10.4); MONOCYTES % 13.8 % (2.0-8.0); NEUTROPHILS % 78.1 % (40.0-76.0); PLATELET 121 x1000/uL (130-400); RED BLOOD CELL COUNT 4.27 mill/uL (4.7-6.1); RED CELL DISTRIBUTION WIDTH 14.7 % (11.6-14.6)
[2022-03-20 18:05] LABS: CHLORIDE 101 mEq/L (98-107)
[2022-03-20 20:00] VITALS: BP 123/63
[2022-03-21] VITALS: BP 129/63
[2022-03-21 04:00] VITALS: BP 126/60
[2022-03-21] MEDS: BLOOD SUGAR DIAGNOSTIC STRIP TEST SCH ×3 (05:38→17:17)
[2022-03-21] MEDS: INSULIN LISPRO 100 UNITS/ML SUBCUT SCH ×3 (05:38→17:47)
[2022-03-21] MEDS: DILTIAZEM HCL 60MG TABLET PO SCH ×2 (05:40→14:14)
[2022-03-21] MEDS: SODIUM CHLORIDE 0.45% 1,000 ML IV SCH (05:41)
[2022-03-21 06:50] LABS: HEMATOCRIT. 42.4 % (42.0-52.0); HEMOGLOBIN. 14.4 g/dL (14.0-18.0); MEAN CORPUSCULAR HEMOGLOBIN 33.9 pg (28.0-32.0); MEAN CORPUSCULAR VOLUME 99.8 fL (80.0-94.0); RED BLOOD CELL COUNT 4.24 mill/uL (4.7-6.1); RED CELL DISTRIBUTION WIDTH 14.4 % (11.6-14.6)
[2022-03-21 07:09] LABS: CHLORIDE 103 mEq/L (98-107)
[2022-03-21] MEDS ORDERED: MULTIVITAMINS,THER W-MINERALS TABLET PO SCH (09:00)
[2022-03-21] MEDS: METOPROLOL TARTRATE 25MG TABLET PO SCH (09:00)
[2022-03-21] MEDS: ASCORBIC ACID 500 MG TABLET PO SCH (09:56)
[2022-03-21] MEDS: ASPIRIN 81MG EC TABLET PO SCH (09:56)
[2022-03-21] MEDS: ZINC SULFATE 220 MG ( 50 ) CAPSULE PO SCH (09:56)
[2022-03-21] MEDS: CLOPIDOGREL 75MG TABLET PO SCH (09:57)
[2022-03-21] MEDS: ENOXAPARIN 30MG/0.3ML SYR SUBCUT SCH (09:57)
[2022-03-21] MEDS ORDERED: CLOPIDOGREL 75MG TABLET PO SCH (11:30)
[2022-03-21 12:07] LABS: PLATELET ESTIMATE DECREASED
[2022-03-21] MEDS ORDERED: SODIUM PHOS,M-BASIC-D-BASIC 10 MM in DEXT 5% WATER 246.6667 ML IV NR (13:00)
[2022-03-21] MEDS ORDERED: IOHEXOL-350 100 ML BOTTLE ONE (13:50)
[2022-03-21] MEDS: BRIMONIDINE 0.2% OPHTH DROPS 5ML EACHEYE SCH ×2 (14:13→17:17)
[2022-03-21] MEDS ORDERED: METF-415 MT (15:53)
[2022-03-21 16:30] VITALS: BP 124/65
[2022-03-21 17:52] VITALS: BP 124/65
[2022-03-21] MEDS ORDERED: GUAIFENESIN 600MG ER TABLET PO SCH (21:00)
[2022-03-21] MEDS ORDERED: LATANOPROST 0.005% OPHTH DROPS 2.5ML EACHEYE SCH (21:00)
== END 2022-03-21 19:16 | disposition home health service (06) | DRG 871 ==
LOC: ER 15:53 → MICUSO 21:55 → EDBEDREQ 22:05 → EDBEDREQTM 22:05 → 7EST 03-18 05:05
PROVIDERS: ADMIT Internal Medicine; ATTEND Internal Medicine
DX: A41.89 Other specified sepsis (principal); J12.82 Pneumonia due to coronavirus disease 2019; U07.1 COVID-19; J96.21 Acute and chronic respiratory failure with hypoxia; N17.0 Acute kidney failure with tubular necrosis; E44.0 Moderate protein-calorie malnutrition; I13.0 Hypertensive heart and chronic kidney disease with heart failure and stage 1 through stage 4 chronic kidney disease, or unspecified chronic kidney disease; J44.0 Chronic obstructive pulmonary disease with (acute) lower respiratory infection; J44.1 Chronic obstructive pulmonary disease with (acute) exacerbation; I50.32 Chronic diastolic (congestive) heart failure; E11.22 Type 2 diabetes mellitus with diabetic chronic kidney disease; E11.65 Type 2 diabetes mellitus with hyperglycemia; E86.0 Dehydration; N18.9 Chronic kidney disease, unspecified; E78.5 Hyperlipidemia, unspecified; I25.10 Atherosclerotic heart disease of native coronary artery without angina pectoris; E78.00 Pure hypercholesterolemia, unspecified; R74.01 Elevation of levels of liver transaminase levels; F17.210 Nicotine dependence, cigarettes, uncomplicated; Z68.26 Body mass index [BMI] 26.0-26.9, adult; Z88.2 Allergy status to sulfonamides; Z88.8 Allergy status to other drugs, medicaments and biological substances; Z79.899 Other long term (current) drug therapy; Z79.02 Long term (current) use of antithrombotics/antiplatelets; Z79.4 Long term (current) use of insulin; Z79.84 Long term (current) use of oral hypoglycemic drugs; Z95.1 Presence of aortocoronary bypass graft; Z95.5 Presence of coronary angioplasty implant and graft
CPT/HCPCS: 36415; 36600; 71045; 71275; 78580; 80053; 80061; 81003; 82375; 82805; 82962; 83036; 83605; 83735; 83880; 84100; 84145; 84439; 84443; 84484; 85025; 85379; 86710; 87426; 87804; 92610; 93005; 93970; 97162; 97166; 99285; C9803; J1100; J1650; J1815; J3490; J7030; J7060; Q9967

== ENCOUNTER 2022-03-28 06:48 | Inpatient (IN) | payer MEDICARE, BC ==
[~2022-03-28] VITALS: Ht 175.3 cm; Wt 76.2 kg
[~2022-03-28 06:48] MED LIST changes: +METF-415 MT
[2022-03-28 09:28] LABS: CLARITY URINE CLEAR (CLEAR); COLOR URINE YELLOW (YELLOW); KETONES URINE 2+ (NEGATIVE); LEUKOCYTE ESTERASE URINE NEGATIVE (NEGATIVE); NITRITE URINE NEGATIVE (NEGATIVE); OCCULT BLOOD URINE NEGATIVE (NEGATIVE); PROTEIN URINE 1+ (NEGATIVE); SPECIFIC GRAVITY URINE 1.021 (1.005-1.030); UROBILINOGEN URINE 0.2 E.U./dL (0.2-1.0)
[2022-03-28 10:56] LABS: BASOPHILS % 0.4 % (0.0-2.0); EOSINOPHILS % 0.1 % (0.0-5.0); HEMATOCRIT. 38.9 % (42.0-52.0); HEMOGLOBIN. 12.9 g/dL (14.0-18.0); LYMPHOCYTES % 8.3 % (20.0-50.0); MEAN CORPUSCULAR HEMOGLOBIN 33.4 pg (28.0-32.0); MEAN CORPUSCULAR VOLUME 100.6 fL (80.0-94.0); MEAN PLATELET VOLUME 11.1 fl (7.4-10.4); MONOCYTES % 9.3 % (2.0-8.0); NEUTROPHILS % 81.9 % (40.0-76.0); PLATELET 105 x1000/uL (130-400); RED BLOOD CELL COUNT 3.87 mill/uL (4.7-6.1); RED CELL DISTRIBUTION WIDTH 14.6 % (11.6-14.6)
[2022-03-28 10:59] LABS: CHLORIDE 100 mEq/L (98-107)
[2022-03-28] MEDS ORDERED: SODIUM CHLORIDE 0.9% 500 ML IV ONE (11:30)
[2022-03-28] MEDS ORDERED: ASPIRIN 81MG TABLET PO ONE (11:30)
[2022-03-28] MEDS ORDERED: ASPIRIN 81MG TABLET PO NR (13:15)
[2022-03-28] MEDS ORDERED: ACETAMINOPHEN 325MG TABLET PO PRN (15:45)
[2022-03-28] MEDS ORDERED: ONDANSETRON HCL 4MG/2ML INJ IV PRN (15:45)
[2022-03-28] MEDS ORDERED: CLONIDINE 0.1MG TABLET PO PRN (15:45)
[2022-03-28] MEDS ORDERED: GUAIFENESIN 200MG/10ML SUGAR FREE UDC PO PRN (15:45)
[2022-03-28] MEDS ORDERED: IPRATROPIUM/ALBUTEROL 0.5-3(2.5)MG/3ML NEB HHN PRN (15:45)
[2022-03-28] MEDS ORDERED: MAGNESIUM/ALUMINUM HYDROXIDE/SIMETHICONE 30ML UDC PO PRN (15:45)
[2022-03-28] MEDS ORDERED: SODIUM CHLORIDE 0.9% 1,000 ML IV ONE (15:45)
[2022-03-28] MEDS ORDERED: DOCUSATE SODIUM 100MG CAPSULE PO PRN (15:45)
[2022-03-28] MEDS: PANTOPRAZOLE SODIUM 40 MG/VIAL IV SCH (17:00)
[2022-03-28] MEDS ORDERED: DEXTROSE 50% WATER 50ML SYRINGE IV PRN (17:30)
[2022-03-28] MEDS: INSULIN LISPRO 100 UNITS/ML SUBCUT SCH (21:05)
[2022-03-28] MEDS: BLOOD SUGAR DIAGNOSTIC STRIP TEST SCH (21:05)
[2022-03-28 22:01] LABS: *AMPHETAMINES SCREEN URINE NEGATIVE (NEGATIVE); *BARBITURATES SCREEN URINE NEGATIVE (NEGATIVE); *BENZODIAZEPINES SCREEN URINE NEGATIVE (NEGATIVE); *COCAINE SCREEN URINE NEGATIVE (NEGATIVE); CANNABINOID URINE SCREEN NEGATIVE (NEGATIVE); METHADONE URINE SCREEN NEGATIVE (NEGATIVE); OPIATES URINE SCREEN NEGATIVE (NEGATIVE); PHENCYCLIDINE URINE SCREEN NEGATIVE (NEGATIVE)
[2022-03-29 01:08] VITALS: BP 147/83
[2022-03-29 01:16] VITALS: BP 147/83
[2022-03-29 04:30] VITALS: BP 119/46
[2022-03-29] MEDS: BLOOD SUGAR DIAGNOSTIC STRIP TEST SCH ×4 (06:40→20:35)
[2022-03-29 07:01] LABS: HEMATOCRIT 37.6 % (42.0-52.0); HEMOGLOBIN 12.5 g/dL (14.0-18.0); MEAN CORPUSCULAR HEMOGLOBIN 33.8 pg (28.0-32.0); MEAN CORPUSCULAR VOLUME 101.6 fL (80.0-94.0); PLATELET 89 x1000/uL (130-400); RED CELL DISTRIBUTION WIDTH 14.4 % (11.6-14.6)
[2022-03-29 07:08] LABS: CHLORIDE 104 mEq/L (98-107)
[2022-03-29 07:29] LABS: PHOSPHORUS 2.3 mg/dL (2.5-4.9); T4 FREE 1.25 ng/dL (0.76-1.46)
[2022-03-29] MEDS ORDERED: ENOXAPARIN 30MG/0.3ML SYR SUBCUT SCH (09:00)
[2022-03-29] MEDS: PANTOPRAZOLE SODIUM 40 MG/VIAL IV SCH (10:05)
[2022-03-29] MEDS: INSULIN LISPRO 100 UNITS/ML SUBCUT SCH ×5 (10:05→21:08)
[2022-03-29] MEDS ORDERED: FUROSEMIDE 40MG TABLET PO SCH (11:30)
[2022-03-29 12:00] VITALS: BP 142/58
[2022-03-29 16:00] VITALS: BP 126/49
[2022-03-29] MEDS: FUROSEMIDE 40MG/4ML VIAL IVP SCH (16:45)
[2022-03-29] MEDS: ASPIRIN 81MG EC TABLET PO SCH (16:46)
[2022-03-29] MEDS: TAMSULOSIN HCL 0.4MG SR CAPSULE PO SCH (16:46)
[2022-03-29 20:11] VITALS: BP 114/53
[2022-03-29] MEDS ORDERED: LATANOPROST 0.005% OPHTH DROPS 2.5ML EACHEYE SCH (21:00)
[2022-03-29] MEDS ORDERED: ATORVASTATIN CALCIUM 40MG TABLET PO SCH (21:00)
[2022-03-29] MEDS: CARVEDILOL 3.125 MG TABLET PO SCH (21:08)
[2022-03-30 00:30] VITALS: BP 123/57
[2022-03-30 04:10] VITALS: BP 103/57
[2022-03-30] MEDS ORDERED: METOPROLOL TARTRATE 5MG/5ML VIAL IV NR (04:45)
[2022-03-30] MEDS ORDERED: METOPROLOL TARTRATE 5MG/5ML VIAL IV PRN (05:20)
[2022-03-30 06:41] LABS: HEMATOCRIT 37.9 % (42.0-52.0); HEMOGLOBIN 12.6 g/dL (14.0-18.0); MEAN CORPUSCULAR HEMOGLOBIN 33.7 pg (28.0-32.0); MEAN CORPUSCULAR VOLUME 101.7 fL (80.0-94.0); PLATELET 94 x1000/uL (130-400); RED BLOOD CELL COUNT 3.73 mill/uL (4.7-6.1)
[2022-03-30] MEDS: BLOOD SUGAR DIAGNOSTIC STRIP TEST SCH ×2 (06:45→11:52)
[2022-03-30 08:00] VITALS: BP 111/47
[2022-03-30] MEDS: INSULIN LISPRO 100 UNITS/ML SUBCUT SCH ×2 (08:10→12:12)
[2022-03-30 08:30] LABS: VITAMIN B12 SERUM >2000 pg/mL pg/mL (211-911)
[2022-03-30] MEDS: CARVEDILOL 3.125 MG TABLET PO SCH (09:00)
[2022-03-30] MEDS ORDERED: BRIMONIDINE 0.2% OPHTH DROPS 5ML EACHEYE SCH (09:00)
[2022-03-30] MEDS: PANTOPRAZOLE SODIUM 40 MG/VIAL IV SCH (09:17)
[2022-03-30] MEDS: FUROSEMIDE 40MG/4ML VIAL IVP SCH (09:17)
[2022-03-30 09:18] LABS: CHLORIDE 104 mEq/L (98-107)
[2022-03-30] MEDS: TAMSULOSIN HCL 0.4MG SR CAPSULE PO SCH (09:18)
[2022-03-30] MEDS: ASPIRIN 81MG EC TABLET PO SCH (09:18)
[2022-03-30 09:26] LABS: PHOSPHORUS 1.9 mg/dL (2.5-4.9)
[2022-03-30 12:00] VITALS: BP 126/56
[2022-03-30 14:57] VITALS: BP 126/56
== END 2022-03-30 16:35 | disposition home health service (06) | DRG 947 ==
LOC: ER 06:54 → 7WST 12:37 → EDBEDREQ 12:41 → ENRESERV 23:03
PROVIDERS: ADMIT Internal Medicine; ATTEND Internal Medicine
DX: R53.1 Weakness (principal); E43 Unspecified severe protein-calorie malnutrition; U09.9 Post COVID-19 condition, unspecified; J44.9 Chronic obstructive pulmonary disease, unspecified; E11.9 Type 2 diabetes mellitus without complications; D69.6 Thrombocytopenia, unspecified; N40.0 Benign prostatic hyperplasia without lower urinary tract symptoms; D53.9 Nutritional anemia, unspecified; I25.10 Atherosclerotic heart disease of native coronary artery without angina pectoris; E78.5 Hyperlipidemia, unspecified; Z68.24 Body mass index [BMI] 24.0-24.9, adult; Z88.2 Allergy status to sulfonamides; Z88.0 Allergy status to penicillin; Z79.899 Other long term (current) drug therapy; Z90.49 Acquired absence of other specified parts of digestive tract; Z95.1 Presence of aortocoronary bypass graft; Z87.891 Personal history of nicotine dependence
CPT/HCPCS: 36415; 71045; 74176; 80048; 80053; 80061; 80305; 81003; 82607; 82746; 82962; 83036; 83605; 83735; 83880; 84100; 84145; 84153; 84439; 84443; 84484; 85025; 85027; 85379; 93005; 93306; 93970; 99285; C9113; J1815; J1940; J3490; J7040; G0103